=== PATIENT | female | born 1995 | race Caucasian/White ===

== ENCOUNTER 2018-04-18 13:07 | Emergency (ER) | payer BC ==
[2018-04-18] MEDS ORDERED: NS 0.9% 1000 ML* 1,000 ML IV ONE (13:31)
[2018-04-18] MEDS ORDERED: diPHENhydraMINE IV* 50 MG/ML 1 ml VIAL (BENADRYL) IM ONE (13:31)
[2018-04-18] MEDS ORDERED: Metoclopramide IV* 5 MG/ML 2 ML VIAL IV ONE (13:31)
[2018-04-18 13:47] LABS: ABS Basophils 0 10^3/ul (0-0.2); ABS Eosinophils 0.1 10^3/ul (0-0.6); ABS Lymphocytes 1.8 10^3/ul (1.0-4.8); ABS Monocytes 0.5 10^3/ul (0-0.8); ABS Neutrophils 3.7 10^3/ul (1.5-7.7); ABS Nucleated RBC 0 10^3/ul; Hematocrit 38 % (35-47); Hemoglobin 13.3 g/dl (12.0-16.0); Lymphocyte % 29.1 % (25-47); Mean Corpuscular HGB Conc 35 g/dl (31-36); Mean Corpuscular Hemoglobin 30 pg (27-31); Mean Corpuscular Volume 85 fL (80-97); Mean Platelet Volume 6.6 um3 (7.4-10.4); Nucleated Red Blood Cells % 0; Platelet Count 286 10^3/ul (150-450); Red Blood Count 4.51 10^6/ul (4.0-5.4); Red Cell Distribution Width 13 % (10.5-15); White Blood Count 6.2 10^3/ul (3.5-10.8)
[2018-04-18 13:54] LABS: INR 0.99 (0.77-1.02)
[2018-04-18 14:05] LABS: EGFR Non-African American 88.9 (>60)
[2018-04-18 15:29] LABS: Urine Appearance Clear; Urine Blood 2+ (Negative); Urine Color Straw; Urine Ketones Negative (Negative); Urine Protein Negative (Negative); Urine Specific Gravity 1.003 (1.010-1.030); Urine Urobilinogen Negative (Negative)
[2018-04-18] MEDS ORDERED: Ketorolac INJ* 30 MG/ML 1 ML VIAL IV PUSH ONE (16:17)
[2018-04-18 18:12] VITALS: BP 106/54
--- NOTE | 2018-04-19 01:42 | ED ---
Leonie Madden Gabriel, scribed for Ariela Loyd MD on 04/18/18 at 1338 . Headache - HPI Summary HPI Summary: This patient is a 22 year old F [place] [facility] with a chief complaint of a "migraine" with a "blind spot" that began yesterday and has persisted. Dr. Tyler, isolation washer for pt's PCP Dr. Ramos advised pt to come to ED due to persistent HENDRIX and the "blind spot" for further evaluation and treatment. Pt is on an SSRI, and Dr. Tyler is concerned with risk of serotonin syndrome, in trying a triptan for the first time in someone on an SSRI. Pt has a hx of migraines dx'd by her PCP years ago, but never saw a neurologist. She has not had a "migraine" in several years. Pt's HENDRIX started yesterday at 1100 that was also accompanied by a blind spot in the left eye, so she took ibuprofen which alleviated the sx until 1700. At this point the HENDRIX came back suddenly and the blind spot was worse than previously. She describes the blind spots as when Im looking at words I cant see all the words and states the headache is located throughout her head. She also c/o lack of peripheral vision in the right eye. The patient rates the pain 7/10 in severity. She is currently on her 6th day of menstruation and feels it is a normal period, but doesnt believe the headache is associated with her menses. Pt takes EScitalopram and levothyroxine. No family history of migraines. - History Of Current Complaint Chief Complaint: EDNeurologicalDeficit Stated Complaint: HEADACHE Time Seen by Provider: 04/18/18 13:18 Hx Obtained From: Patient, Family/[employer]urchasing [employer] - father, Other: - Dr. Tyler by phone Hx Last Menstrual Period: present Onset/Duration: Gradual Onset, Started days ago, Still Present Initially Headache Was: Initial Pain Scale(0-10)= - 7 Currently Pain Is: Current Pain Scale(0-10)= - 7 Timing: Constant Character: Migraine Location of Headache: Diffuse, Other: - also right frontal Radiates to: no radiation Aggravating Factor: Nothing Allevating Factors: Other (Noted In Comments) - OTC meds: Ibuprofen Associated Signs And Symptoms: Visual Changes Related History: Similar Episode/DX As: - migraine - Allergies/Home Medications Allergies/Adverse Reactions: Allergies Allergy/AdvReac Type Severity Reaction Status Date / Time No Known Allergies Allergy Verified 04/18/18 13:13 Home Medications: Home Medications Escitalopram (NF) [Lexapro 10 mg (NF)] 15 mg PO DAILY 04/18/18 [History Confirmed 04/18/18] Levothyroxine TAB* [Synthroid TAB*] 50 mcg PO DAILY 04/18/18 [History Confirmed 04/18/18] PMH/Surg Hx/FS Hx/Imm Hx Previously Healthy: Yes Endocrine/Hematology History: Denies: Hx Diabetes Cardiovascular History: Denies: Hx Congestive Heart Failure, Hx Hypertension, Hx Pacemaker/ICD Respiratory History: Denies: Hx Chronic Obstructive Pulmonary Disease (COPD) Musculoskeletal History: Denies: Hx Rheumatoid Arthritis, Hx Osteoporosis Sensory History: Denies: Hx Hearing Aid Neurological History: Reports: Hx Headaches, Hx Migraine Psychiatric History: Denies: Hx Panic Disorder - Surgical History Surgery Procedure, Year, and Place: none Infectious Disease History: No Infectious Disease History: Denies: Traveled Outside the [place] in Last 30 Days - Family History Known Family History: Negative: Other Family History: no fmhx of migraines - Social History Occupation: Student Lives: With Family Alcohol Use: Rare Substance Use Type: Reports: None Smoking Status (MU): Never Smoked Tobacco Review of Systems Constitutional: Negative Positive: Other - visual disturbances ENT: Negative Cardiovascular: Negative Respiratory: Negative Gastrointestinal: Negative Skin: Negative Positive: Headache Psychological: Normal All Other Systems Reviewed And Are Negative: Yes Physical Exam - Summary Physical Exam Summary: Appearance: Well-appearing, moderate pain distress, well-nourished Skin: Warm, color reflects adequate perfusion, dry Head: Normal Head/Face inspection, atraumatic Eyes: Left pupil is 3mm, right pupil is 2mm, EOMI, visual lynne intact by confrontation, denies visual field cut at the time of the exam. ENT: Normal inspection, TM's clear Neck: Supple, no nodes, no JVD Respiratory: Lungs clear, normal breath sounds, no respiratory distress Cardio: RRR, No murmur, pulses normal, brisk capillary refill Abdomen: Soft, nontender Bowel sounds: Present Musculoskeletal: Strength Intact/ROM intact, no calf tenderness, no edema. Psychological: Normal Neuro: Alert, muscle tone normal, no focal deficit Triage Information Reviewed: Yes Vital Signs On Initial Exam: Initial Vitals Temp Pulse Resp BP Pulse Ox 97.2 F 74 16 118/66 97 04/18/18 13:08 04/18/18 13:08 04/18/18 13:08 04/18/18 13:08 04/18/18 13:08 Vital Signs Reviewed: Yes Diagnostics - Vital Signs Vital Signs Temp Pulse Resp BP Pulse Ox 04/18/18 13:08 97.2 F 74 16 118/66 97 - Laboratory Result Diagrams: 04/18/18 13:39 04/18/18 13:39 Lab Statement: Any lab studies that have been ordered have been reviewed, and results considered in the medical decision making process. Re-Evaluation - Re-Evaluation First Eval Re-Evaluation Time: 16:14 Change: Improved Comment: The pt states her HENDRIX is down to a 4/10 pupils. Her pupils are still 3mm on the left and 2mm on the right, no focal deficits. Second Eval Re-Evaluation Time: 17:06 Change: Improved Comment: HENDRIX down to 2/10 and the pupils are now equal. Headache Course/Dx - Course Assessment/Plan: Blood work an UA obtained. In the ED course the patient was given bendryl, toradol, and reglan, which decreased the symptoms, but did not eliminate them entirely, but pt felt she would be able to go home and sleep and get rid of the HENDRIX. Dx migraine headaches. Patient will be discharged with and follow up from Dr. Ramos. The patient is agreeable with this plan. - Diagnoses Provider Diagnoses: Migraine headache Discharge - Sign-Out/Discharge Documenting (check all that apply): Discharge/Admit/Transfer - home - Discharge Plan Condition: Stable Disposition: HOME Patient Education Materials: Migraine Headache (ED) Referrals: Jyoti Ramos MD [Primary Care Provider] - 2 Days Additional Instructions: You were given benadryl 50mg, reglan 10mg and toradol 30mg IV while you were in the ED, and you were given IV fluids. Your headache improved and you did not have recurrence of your visual field cut. Your pupils were unequal with the left larger than the right, but you had no other focal neurologic signs so we did not do imaging with a CT scan which would be a radiation exposure. Have definite follow up with Dr. Ramos this week. Return to the ER if you have new or worsening symptoms. - Billing Disposition and Condition Condition: STABLE Disposition: Home The documentation as recorded by the Leonie aguirre Gabriel accurately reflects the service I personally performed and the decisions made by , Ariela Loyd MD.
== END 2018-04-18 17:23 | disposition home or self-care (01) ==
LOC: ED 13:07
DX: G43.909 Migraine, unspecified, not intractable, without status migrainosus (principal)
CPT/HCPCS: 36415; 80053; 80307; 81003; 81015; 83605; 84443; 84481; 85025; 85610; 85652; 86140; 87086; 96372; 96374; 96375; 99283; J1200; J1885; J2765